=== PATIENT | female | born 1975 | race Caucasian/White ===

== ENCOUNTER → 2022-08-22 07:45 | Outpatient (CLI) | payer BC, SELFPAY ==
--- NOTE | ~2022-08-22 | MMUS_ITS ---
EXAMINATION: MM diagnostic lex BI w piedad, US breast BI complete HISTORY: Patient's physician reportedly feels a lump in the superior left breast. TECHNIQUE: ML, MLO and CC 3-D tomosynthesis images of both breasts were performed and synthetic 2-D i mages were generated. CAD analysis was submitted and interpreted. High resolution complete bilateral breast ultrasound examination of all 4 quadrants and subareolar areas was performed. COMPARISON: None BREAST PARENCHYMAL COMPOSITION: The breasts are heterogeneously dense, which may obscure small masses . FINDINGS: MAMMOGRAPHIC FINDINGS: No suspicious mass or architectural distortion, malignant calcification, skin thickening or retractio n is detected. ULTRASOUND: A cyst is identified on each side at 10:00. On the left at 10:00 6 cm from the nipple there is a para llel circumscribed 3.6 x 14 mm cyst. On the right at 10:00 4 cm from nipple there is a 2.1 x 4.5 mm c ircumscribed sonolucency with through transmission consistent with cyst. No suspicious mass or shadowing is detected. IMPRESSION: 1. No mammographic evidence of malignancy 2. Routine mammographic screening is recommended. BIRADS Category 2: Benign Reviewed, dictated and finalized at location A. IMPRESSION: 1. No mammographic evidence of malignancy 2. Routine mammographic screening is recommended. BIRADS Category 2: Benign
== END ==
PROVIDERS: PCP Advanced Practice Midwife; Visit Provider Obstetrics & Gynecology Gynecology
DX: N63.21 Unspecified lump in the left breast, upper outer quadrant (principal)
CPT/HCPCS: 76641; 77062; 77066; G0279

== ENCOUNTER 2023-12-04 10:43 | Outpatient (CLI) | payer OTHER, SELFPAY ==
--- NOTE | ~2023-12-04 | MM_ITS ---
EXAMINATION: MM screening lex BI w piedad HISTORY: Screening TECHNIQUE: Craniocaudal and mediolateral oblique 3-D tomosynthesis images were obtained and synthetic 2-D images were generated. CAD analysis was submitted and interpreted. COMPARISON: 08/22/2022 BREAST PARENCHYMAL COMPOSITION: Dense: The breasts are heterogeneously dense, which may obscure small masses FINDINGS: There is no evidence of suspicious mass, calcification, or architectural distortion to sugg est malignancy in either breast. There has been no suspicious interval change. IMPRESSION: 1. No mammographic evidence of malignancy. 2. Recommend routine screening mammography in one year. BI-RADS Category 1: Negative Reviewed, dictated and finalized at location B.
== END 2023-12-04 10:44 | disposition home or self-care (01) ==
LOC: MICIMG 10:43
PROVIDERS: PCP Advanced Practice Midwife; Visit Provider Nurse Practitioner
DX: Z12.31 Encounter for screening mammogram for malignant neoplasm of breast (principal)
CPT/HCPCS: 77063; 77067

== ENCOUNTER 2024-10-26 08:46 | Outpatient (CLI) | payer BC, SELFPAY ==
--- NOTE | ~2024-10-26 | MMUS_ITS ---
EXAMINATION: MM diagnostic lex BI w piedad, US breast LT limited INDICATION: 49-year old female; evaluation of change in the upper area of the left breast felt by primary care provider at physical examination. Patient cannot feel the difference. COMPARISON: 12/04/2023 and 08/22/2022 TECHNIQUE: Digital breast tomosynthesis CC and MLO views of the BILATERAL breast were obtained with computer-aided detection to assist in interpretation of the study. MAMMOGRAPHY FINDINGS: The breasts are heterogeneously dense, which may obscure small masses. There are no suspicious masses, calcifications, architectural distortion or any other abnormality in either breast. LEFT BREAST ULTRASOUND FINDINGS: Targeted sonographic evaluation of the superior left breast was completed. There is a benign-appearing septated cyst that measure 1.1 x 0.4 x 0.7 cm seen in the superior medial, 11:00, 6 cm from the nipple. Benign-appearing lymph node is seen at 1:00, 15 cm from the nipple. There is other suspicious sonographic abnormality identified. IMPRESSION: Benign finding in the superior medial 11:00 in the left breast. Otherwise no mammographic or sonographic abnormality is seen in the upper left breast which is the area of concern. Further evaluation of patient's palpable lump should be based on clinical examination. RECOMMENDATION: Clinical management of patient's palpable lump. BI-RADS 2, BENIGN Reviewed, dictated and finalized at location B. IMPRESSION: Benign finding in the superior medial 11:00 in the left breast. Otherwise no ma mmographic or sonographic abnormality is seen in the upper left breast which is the area of concern. Further evaluation of patient's palpable lump should be based on clinical exami nation. RECOMMENDATION: Clinical management of patient's palpable lump. BI-RADS 2, BENIGN
== END 2024-10-26 08:47 | disposition home or self-care (01) ==
PROVIDERS: PCP Nurse Practitioner; Visit Provider Nurse Practitioner
DX: N63.20 Unspecified lump in the left breast, unspecified quadrant (principal)
CPT/HCPCS: 76642; 77062; 77066; G0279

== ENCOUNTER 2024-10-28 12:47 | Outpatient (CLI) | payer BC, SELFPAY ==
--- NOTE | ~2024-10-28 | US_ITS ---
EXAMINATION: US pelvic complete INDICATION: Abnormal uterine bleeding Comparison:No prior studies for comparison. TECHNIQUE: Multiple transabdominal sonographic images of the pelvis performed. FINDINGS: The uterus measures 9.1 x 4.8 x 5.2 cm. There is small uterine fibroids, largest measuring 1.6 cm. The endometrial complex measures 7 mm. The right ovary measures 2.6 x 1.6 x 2.5 cm and the left ovary measures 2.9 x 1.4 x 2.1 cm. There are small follicles in each ovary. Normal doppler signal in both ovaries. There is no free fluid in the pelvis. There are no abnormal masses seen on either side. IMPRESSION: 1. Uterine fibroids, largest measuring 1.6 cm. Reviewed, dictated and finalized at location O.
== END 2024-10-28 12:48 | disposition home or self-care (01) ==
PROVIDERS: PCP Nurse Practitioner; Visit Provider Nurse Practitioner
DX: D25.9 Leiomyoma of uterus, unspecified (principal)
CPT/HCPCS: 76856

== ENCOUNTER 2025-01-11 00:10 | Day surgery (SDC) | payer BC, SELFPAY ==
--- NOTE | 2024-12-29 10:11 | SUR.PREOP ---
[facility] has started construction of its new state of the art ER which will open Spring 2026. With this, we anticipate parking may be a challenge for some our surgical patients and families. Parking spaces are limited but are available for all Surgical, obstetrics, and ER patients sharing this lot. If you arrive and find you are having a hard time finding a parking space, please note that we understand the challenges, please drive around the hospital and park near Hospital Entrance 1. When you enter this entrance, you can ask a volunteer to direct or take you back to the surgical waiting area to check in. We appreciate everyone?s understanding of these expected challenges while we build for your future. Report to the Outpatient Waiting Room, entrance under the green pavilion located off [address], at time _600AM__ on date __01/11/25__. Planned Procedure Time: __730AM__.? Time changes happen often and if your time is changed the preop area will call you the afternoon before. - You and your visitor will be asked to self-screen and do not enter if you have any COVID symptoms. Please call surgeon if you need to reschedule. - A mask is optional within the hospital at this time. Patients may have clear liquids (water, carbonated beverages, clear teas, apple juice) until 3 hours prior to surgery with a maximum of 20 ounces. - No food from midnight until time of surgery and no smoking, or chewing tobacco (or any form of nicotine). No chewing gum, candy or mints. Take only the following medications with a SIP of water on the morning of surgery: _fluoxetine__ DO NOT STOP ANY OF YOUR OTHER PRESCRIPTION MEDICATIONS PRIOR TO SURGERY EXCEPT THE FOLLOWING Hold all vitamins and supplements for 3 days per anesthesiologist. Medications to discontinue per physician ____None____ Date to take last dose of vitamins__01/07/25 Please no make-up, nail luxembourger, hairspray, perfume, deodorant, or body powder the day of surgery.? No jewelry (including any body piercings) or valuables the day of surgery, leave them at home.? Please take a shower or bath the night before, or the morning of, surgery with an antibacterial soap.? Wear comfortable, loose fitting clothing.? - Jewelry must be removed prior to entering the operating room.? Rings and piercings that are not removed may be cut off. - The hospital will not accept responsibility for valuables.? - Please leave all valuables, including medications, at home the day of surgery. If you are going home after surgery, a licensed over the road driver must drive you home.? - NO public transportation without another adult if you receive anesthesia. - We recommend that an adult stay with you for 24 hours following discharge. - We also recommend that you do not drive, make important decision, drink alcoholic beverages, or take any drugs that were not prescribed by your health care provider for at least 24 hours after your discharge time. Follow any additional instructions given to you from your surgeon. Telephone instructions given to _Lupe_and asked if any additional questions and then verbalized understanding. Patient advised to call surgeon office or pre surgery nurse liaison [phone] if any additional questions.
[2024-12-29 10:16] VITALS: BMI 33.8
--- OUTSIDE RECORDS SUMMARY | 2025-01-11 00:12 | XMS_ITS | Clinical Summary ---
Author Organization [address] Address [address] [place] [id number] Care Team Providers Care Charge Master Analyst Name Role Phone Ibeth Gonsales NP Primary Care Provider [phone] Allergies Active Allergy Reactions Criticality Noted Date Comments Erythromycin Nausea only Low 07/15/2024 Medications FLUoxetine 10 mg capsule Take 1 tablet/capsule (10 mg total) by mouth daily 5 Active triamcinolone (KENALOG) 0.1 % ointment Apply topically 2 (two) times a day for 10 days Avoid face and genital area. 30 g 5 Active naproxen (NAPROSYN) 500 mg tablet TAKE 1 TABLET BY MOUTH TWICE A DAY WITH MEALS 60 tablet 5 Active Active Problems Problem Noted Date Diagnosed Date Anxiety 09/18/2024 Assessment & Plan (09/22/2024 12:12 PM CDT): Right shoulder pain 09/18/2024 Assessment & Plan (09/22/2024 12:12 PM CDT): Wellness examination 09/18/2024 Assessment & Plan (09/22/2024 12:12 PM CDT): Routine health maintenance objectives discussed and orders placed for any outstanding screening studies. Physical exam performed as above. Routine annual labs obtained and will be reviewed with patient when results available. Encouraged regular physical activity--moderate activity for a total of 150 minutes per week over 3-5 days. Encouraged healthy diet with regular fresh fruits and vegetables limited in processed carbohydrates. Alcohol use - socially Nicotine use - never Depression screening - PHQ Screening Over the past 2 weeks, how often have you been bothered by any of the following problems? Little Interest or Pleasure in Doing Things: 0-Not at all Feeling Down, Depressed, or Hopeless: 0-Not at all PHQ-2 Total Score (If total score is 3 or more points, staff should administer the PHQ-9): 0 Orders: Comprehensive metabolic panel; Future Lipid panel; Future CBC with auto differential; Future Encounters Date Type Department Care Team Description 10/13/2024 8:00 AM CDT Office Visit [facility] [address] [place] [id number] Nanda Russell PA Cervical radiculopathy (Primary Dx) from Last 3 Months Immunizations Immunization Administration Dates Next Due Tdap 09/18/2024 Medical History Medical History Date Comments Migraines 2004 Anxiety 2015 Family History Medical History Relation Name Comments Hearing loss Father Cancer Father's Sister Cancer Maternal Grandfather Cancer Maternal Grandmother Memory loss Maternal Grandmother Cancer Mother Miscarriages / Stillbirths Mother Hearing loss Paternal Grandfather Relation Name Status Comments Father Alive Father's Sister Alive Maternal Grandfather Maternal Grandmother Alive Mother Paternal Grandfather Alive Social History Tobacco Use Types Packs/Day Years Used Date Smoking Tobacco: Never Passive Smoke Exposure: Never Smokeless Tobacco: Never AUDIT-C Answer Date Recorded Q1: How often do you have a drink containing alc ohol? Monthly or less 09/18/2024 Q2: How many drinks containi ng alcohol do you have on a typical day when you are drinking? 1 or 2 09/18/2024 Q3: How often do you have si x or more drinks on one occasion? Never 09/18/2024 PHQ-2 Answer Date Recorded PHQ-2 Total Score (If total score is 3 or more points, staff should administer the PHQ-9) 0 09/18/2024 Comments No Sex and Gender Information Value Date Recorded Sex Assigned at Not on file Legal Sex Female 7:09 AM CDT Gender Identity Not on file Sexual Orientation Not on file Last Filed Vital Signs Vital Sign Reading Time Taken Comments Blood Pressure 106/79 10/13/2024 8:07 AM CDT Pulse 88 10/13/2024 8:07 AM CDT Temperature 36.8 C (98.2 F) 09/18/2024 3:57 PM CDT Respiratory Rate 16 09/18/2024 3:57 PM CDT Oxygen Saturation 98% 09/18/2024 3:57 PM CDT Inhaled Oxygen Concentration - - Weight 85.7 kg (189 lb) 10/13/2024 8:07 AM CDT Height 157.5 cm (5' 2) 10/13/2024 8:07 AM CDT Body Mass Index 34.57 10/13/2024 8:07 AM CDT Plan of Treatment Health Maintenance Due Date Last Done Comments Breast Cancer Screening-Mammogram 1975 Cervical Cancer Screening 1975 Colon Cancer Screening-Colonoscopy 1975 Covid-19 Vaccine ( season) 2024 07/29/2020, 07/08/2020 Influenza Vaccine (#1) 2024 Depression Screening 09/18/2025 09/18/2024 Regular Well Visit/Exam 18-64 09/18/2025 09/18/2024 DTaP/Tdap/Td Vaccine (2 - Td or Tdap) 09/18/2034 09/18/2024 Hepatitis B Screening Discontinued Hepatitis C Screening Discontinued Pneumococcal vaccine <65 Aged Out No longer eligible based on patient's age to complete this topic Insurance [facility] ACCESS CHOICE Care Teams Charge Master Analyst Relationship Specialty Start Date End Date Ibeth Gonsales, MANAGER ASSURANCE [address] [facility] [address] [place] [address] PCP - General Internal Medicine 09/18/24
[2025-01-11] MEDS: ACETAMINOPHEN 500 MG TABLET 1000 MG PO (06:20)
[2025-01-11 06:25] VITALS: BP 129/85; PULSE 89; TEMP 36.8; O2SAT 97; BMI 34.7
[2025-01-11] MEDS: LACTATED RINGERS 1,000 ML 30 ML IV CONT (06:25)
--- NOTE | 2025-01-11 06:32 | WPDANESEPPF ---
Anes - Initial Pre Proc Eval Procedure: Operation Date: 01/11/25 07:30 Proposed Procedures p Hysteroscopy Dilation and Curettage - Brenna Robison MD Date/Time: 01/11/25 06:32 Surgeon: Brenna Robison MD Pre Op Diagnosis: Menorrhagia , Fibroids Patient Data Age: 49 Gender: F Height: 1.57 m Weight: 84 kg Allergies Allergy/AdvReac Type Severity Reaction Status Date / Time erythromycin base Allergy Mild Nausea and Verified 12/29/24 10:13 Vomiting Home Medications ?Medication ?Instructions ?Recorded ?Confirmed ?Type cholecalciferol (vitamin D3) 25 2,000 unit PO ONCE 12/29/24 12/29/24 History mcg (1,000 unit) tablet fluoxetine 10 mg capsule 10 mg PO DAILY 12/29/24 12/29/24 History naproxen 500 mg tablet 250 mg PO Q12H PRN pain 12/29/24 12/29/24 History Patient hx anesthesia problems: none Family hx anesthesia problems: none Results Review: All pre-operative results and documents have been reviewed as part of the pre-operative evaluation. [facility] Past Medical History Medical History (Updated 01/11/25 @ 06:32 by Quinton Red MD) Obesity Social History Social History Smoking status: Never smoker Living arrangements: with family Spiritual care concerns: No Anes - Eval Final PreProcedure Day of Procedure 01/11/25 06:32 Patient weight: obese Heart: regular rate and rhythm Lungs: clear to auscultation Airway: Mallampati scale class II Neurological: alert and oriented Last oral intake: >/= 8 hours ASA classification: II Emergent: no Anesthetic plan: proceed Anesthesia type and monitoring: general GIVS and standard monitoring Results Review: All pre-operative results and documents have been reviewed as part of the pre-operative evaluation. Informed Consent: The patient's anesthetic plan and its attendant risks and benefits were discussed with the patient/family/POA. Questions were solicited and answers provided to the satisfaction of the patient/family/POA.
[2025-01-11 06:39] LABS: BEDSIDEPREGUCG Negative (Negative)
--- NOTE | 2025-01-11 07:11 | WPDHPUPDATE1 ---
History and Physical Update Update Date/Time: 01/11/25 07:11 History and Physical has been reviewed, including an updated exam of the patient. There are NO changes in the patient's condition. Risks, benefits, and alternatives have been discussed and questions answered. Patient agrees to proceed with procedure.
--- NOTE | 2025-01-11 07:11 | PM.HPGS ---
History of Present Illness History of Present Illness Consent: Risks, benefits, and alternatives have been discussed and questions answered. Patient agrees to proceed with procedure. Chief complaint: Menorrhagia , Fibroids Narrative: Lupe Reagan is a 49 year old female with cycles less than q 21 days. Flow has been ok. Ultrasound has shown small fibroids. Rec. to proceed with D&C hysteroscopy. Risks of infection, bleeding, and perforation reviewed. Possible pathology also reviewed. Review of Systems Review of Systems: not repeated day of surgery; patient states no changes in status PMFSH Past Medical History Medical History (Updated 01/11/25 @ 07:17 by Brenna Robison MD) (normal spontaneous vaginal delivery) x2 Obesity BMI 39 Social History Social History Smoking status: Never smoker Living arrangements: with family Spiritual care concerns: No Meds Home Medications and Allergies Home Medications ?Medication ?Instructions ?Recorded ?Confirmed ?Type cholecalciferol (vitamin D3) 25 2,000 unit PO ONCE 12/29/24 12/29/24 History mcg (1,000 unit) tablet fluoxetine 10 mg capsule 10 mg PO DAILY 12/29/24 12/29/24 History naproxen 500 mg tablet 250 mg PO Q12H PRN pain 12/29/24 12/29/24 History Allergies Allergy/AdvReac Type Severity Reaction Status Date / Time erythromycin base Allergy Mild Nausea and Verified 01/11/25 06:33 Vomiting Vital Signs Vital Signs - 24 hr 01/11/25 06:25 Temperature 98.2 F Pulse Rate 89 Blood Pressure 129/85 Pulse Oximetry 97 Oxygen Delivery Room Air Exam Const: General: healthy appearing and alert Orientation/consciousness: patient oriented x3 Resp: Effort & Inspection: normal respiratory effort : External Female Exam: normal external appearance Speculum Exam - Vagina: normal appearance of the vagina and normal vaginal discharge Speculum Exam - Cervix: normal appearance of the cervix Bimanual exam- vagina & uterus: uterine size normal and consistency normal Bimanual Exam- Adnexa, other: normal adnexae and No adnexal tenderness Neuro: General: patient oriented x3 Assessment and Plan Assessment and plan (1) Menorrhagia: Code(s): N92.0 - Excessive and frequent menstruation with regular cycle Status: Acute Assessment and Plan: Plan to proceed with D&C hysteroscopy
[2025-01-11] MEDS: KETOROLAC 15 MG/ML VIAL (*BKC) IV PUSH (07:41)
--- NOTE | 2025-01-11 07:42 | S_PTH ---
PATIENT: Lupe Reagan LOC: [facility] U#:[id number] AGE/SX: 49/F ROOM: RE01/11/[address]: Brenna Robison MD : 1975 BED: DIS: 01/11/2025 SPEC #: [id number] RECD: 01/11/25 09:45 STATUS: SAJI REEze #: [id number] LUIS ALBERTO: 01/11/25 07:[address]: Brenna Robison DEPT: [facility] Surgical RECD BY: Patti Hines ENTERED: 01/11/25 09:45 SP TYPE: Surgical OTHR DR: Ibeth Gonsales Tissues: A - Endometrial Curettings Procedures: Hematoxylin and Eosin Stain Gross and Microscopic Level 4
--- NOTE | 2025-01-11 07:44 | P.OP_ITS ---
Procedure Note - Detailed Date of Procedure 01/11/25 Pre-op Diagnosis Menorrhagia , Fibroids Post-op Diagnosis Same Procedure Performed D&C hysteroscopy Surgeon Brenna Robison MD Anesthesia MAC Findings Uterus sounds to 8cm and appears grossly normal Description of Procedure The patient was taken to the operating room and placed under anesthesia in the dorsal lithotomy position. She was prepped and draped in the usual sterile fashion bivalve speculum was placed in the vagina and the cervix grasped on the anterior lip with a tenaculum. The uterus is sounded 8cm. With the above- stated findings the hysteroscope was removed and the sharp curette used to sharply curette the endometrium until a good uterine cry was noted in all areas. All instruments were then removed. Sponge, needle, and instrument counts are correct per the OR staff. Estimated Blood Loss 5 Drains No Packing No Pathology Yes (Endometrial curettings) Complications No immediate complications Condition Stable Disposition PACU
[2025-01-11 07:48] VITALS: BP 110/73; PULSE 73; RESP 14; O2SAT 100
[2025-01-11 08:15] VITALS: BP 114/74; PULSE 74; RESP 16
[2025-01-11 08:44] VITALS: BP 102/80; PULSE 74; RESP 16
== END 2025-01-11 08:54 | disposition home or self-care (01) ==
PROVIDERS: PCP Nurse Practitioner; Visit Provider Obstetrics & Gynecology Gynecology
PROC: 0U5B8ZZ Destruction of Endometrium, Via Natural or Artificial Opening Endoscopic (ICD-10-PCS; CPT 58563; principal; 2025-01-11 07:30)
DX: N92.0 Excessive and frequent menstruation with regular cycle (principal)
CPT/HCPCS: 58558; 88305; A9270; J1100; J1885; J2003; J2250; J2405; J2704; J3010; J7120